=== PATIENT | female | born 1995 | race Caucasian/White ===

== ENCOUNTER 2024-09-25 23:24 | Emergency (ER) | payer OTHER, SELFPAY ==
--- NOTE | ~2024-09-25 | CT_ITS ---
EXAMINATION: CT ANGIOGRAM CHEST CLINICAL INFORMATION: Tachycardia. Chest pain. History of breast cancer. COMPARISON: Chest radiograph 09/25/2024 TECHNIQUE: Multiple axial images were obtained through the chest after the administration of 65 mL of Omnipaque 350 intravenous contrast. Extensive vascular post-processing including two-dimensional and three-dimensional reformatted images were created and reviewed on an independent workstation. This CT examination was performed using dose optimization techniques as appropriate, variously including the following: *Automated exposure control *Adjustment of mA and/or kV according to patient size (this includes techniques or standardized protocols for targeted exams where dose is matched to indication/reason for exam; i.e. extremities or head) *Use of iterative reconstruction technique DLP: 233 mGy-cm FINDINGS: Pulmonary arterial system: High density intraluminal opacification of the pulmonary arterial system is noted. No intraluminal filling defects are noted in the visualized pulmonary arterial system to suggest the presence of pulmonary bladder. The main and central pulmonary arteries are normal in caliber. Thoracic aorta: Normal in caliber. Normal in contour. Lungs and pleura: No endobronchial lesions identified. No pulmonary consolidation. No suspicious pulmonary ground glass opacities. No effusions or pneumothoraces. Mediastinum: Normal appearance of the thyroid which is only partially included on imaged field of view. No lymphadenopathy. Normal heart size. No pericardial thickening or fluid collections. Small hiatal hernia. Thoracic wall: Left axillary and right axillary lymph node dissection clips. Multiple prepectoral vascular clips noted. Status post bilateral mastectomy. No subpectoral lymphadenopathy is identified. No thoracic wall masses or inflammatory changes identified. Incidentally visualized abdominal structures: A 9 mm rounded low-density (2 Hounsfield units) focus is present in the superior aspect of the right lobe of the liver and is most consistent with a benign, simple cyst margin no additional imaging follow-up in the basis of this examination. Osseous structures: No suspicious skeletal lesions noted. A densely sclerotic 5 mm focus is present in the T6 vertebral body and has the appearance of a benign enostosis. CT/CT angio chest PE protocol IMPRESSION: *CT pulmonary angiogram negative for pulmonary emboli. *No pulmonary abnormalities identified. No evidence of pneumonia or active pulmonary edema. *Small hiatal hernia. *Status post bilateral mastectomy and bilateral axillary lymph node dissection. Electronically signed by: Gio Guy MD 09/26/2024 06:14 AM BETTIE OZUNA
--- NOTE | ~2024-09-25 | XR_ITS ---
EXAMINATION: XR CHEST CLINICAL INFORMATION: Pain on inspiration with recent pneumonia COMPARISON: None available. TECHNIQUE: 2 views of the chest were obtained. FINDINGS: Multiple clips are seen in both the chest wall and axillas. No significant abnormality is noted involving the heart, lungs, mediastinum, bony thorax or soft tissues. XR/XR chest 2V IMPRESSION: Unremarkable examination. Electronically signed by: Chi Sinclair MD 09/26/2024 12:28 AM BETTIE
[2024-09-25 23:40] VITALS: BP 98/63; PULSE 89; RESP 18; O2SAT 98; BMI 32.3
[2024-09-26 00:34] LABS: Influenza A PCR NEGATIVE (Negative); Influenza B PCR NEGATIVE (Negative); Resp Syncy Virus RNA Qual PCR NEGATIVE (Negative); SARS COV2 PCR INHOUSE NEGATIVE (Negative)
[2024-09-26 02:11] VITALS: BP 108/67; PULSE 79; RESP 16; TEMP 36.5; O2SAT 100
--- NOTE | 2024-09-26 03:05 | ED.GENADULT ---
HPI - General Adult General Chief complaint: Upper Respiratory Symptoms Stated complaint: ammonia Time Seen by Provider: 09/26/24 02:59 Source: patient Mode of arrival: ambulatory Limitations: no limitations History of Present Illness ED Provider: Dr. Harriet Bennett HPI narrative: Patient comes to the emergency room complaining of lower back pain with deep inhalation and certain movements. Patient states that about 2 weeks ago she was diagnosed with pneumonia, given antibiotics. Patient states that she has not been coughing, no fever chills, no shortness of breath. Patient states that she has a bit of pain in the back especially with deep breaths. Otherwise patient has no complaints, denies any palpitations, denies any lower extremity pain or swelling. Related Data Previous Rx's ?Medication ?Instructions ?Recorded cyclobenzaprine 10 mg tablet 10 mg PO TID PRN muscle spasm #10 09/26/24 tabs ibuprofen 600 mg tablet 600 mg PO Q8H PRN fever or pain 09/26/24 #20 tabs Allergies Allergy/AdvReac Type Severity Reaction Status Date / Time adhesive Allergy Rash Verified 09/25/24 23:41 gabapentin AdvReac Dizziness Verified 09/25/24 23:41 Review of Systems Review of Systems: Constitutional : No Weight loss, No Fever, No Chills, No Night Sweats, No Fatigue, No Malaise ENT/Mouth : No Hearing loss, No Ear Pain, No Nasal Congestion, No Sinus Pain, No Hoarseness, No sore throat, No Rhinorrhea, No Swallowing Difficulty Eyes: No Eye Pain, No Swelling, No Redness, No Foreign Body, No Discharge, No Vision Changes Cardiovascular : No Chest Pain, No SOB, No Dyspnea on Exertion, No Orthopnea, No Edema, No Palpitations Respiratory : No Cough, No Sputum, No Wheezing, No Smoke Exposure, No Dyspnea Gastrointestinal : No Nausea, No Vomiting, No Diarrhea, No Constipation, No abdominal Pain, No Hematochezia, No Melena Genitourinary : no irregular bleeding, No Dysuria, No Urinary Frequency, No Hematuria, No Urinary Incontinence, No Urgency, No Flank Pain, No Urinary Flow Changes, No Hesitancy Musculoskeletal : Complaining of mild back pain on the right middle back No joint pain, No Myalgias, No Joint Swelling Skin : No Skin Lesions, No rash Neuro : No Weakness, No Numbness, No Paresthesias, No Loss of Consciousness, No Dizziness, No Headache Psych : No Anxiety/Panic, No Depression, No SI/HI/AH/VH, No Social Issues, Heme/Lymph: No Bruising, No Bleeding,No Lymphadenopathy Endocrine : No Polyuria, No Polydipsia, No Temperature Intolerance [facility] Past Medical History Medical History (Updated 09/26/24 @ 06:41 by Harriet Bennett MD) Breast cancer Social History Social History Alcohol intake: never Smoked in Last 30 Days: No Use of substances other than those prescribed or required for medical reasons: No Advance Directives: No Advance Directives Information Provided: No Do you have a plan to hurt others: No Plan Patient : No Physical Exam ED Vital Signs: Vital Signs - 24 hr 09/25/24 23:40 09/26/24 02:11 09/26/24 04:04 Temperature 97.7 F 97.7 F Pulse Rate 89 79 76 Respiratory Rate 18 16 18 Blood Pressure 98/63 108/67 102/58 L Pulse Oximetry 98 100 98 Oxygen Delivery Method Room Air Room Air Room Air 09/26/24 05:57 Temperature Pulse Rate Respiratory Rate Blood Pressure Pulse Oximetry 95 Oxygen Delivery Method Room Air BMI result Body Mass Index 32.3 Const Other: Appearance: Alert. Oriented X3. No acute distress. Eyes: Pupils equal, round and reactive to light. ENT: Pharynx normal. Neck: Normal inspection. Neck supple. No lymph nodes noted. No crepitus CVS: Normal heart rate and rhythm. Pulses normal. Normal S1 and S2 Respiratory: No respiratory distress. Breath sounds normal. No Wheezing. No rales Abdomen: Soft and nontender. No rigidity. No distention. By: Reproducible pain to palpation in the middle back Skin: Skin warm and dry. Normal skin color. Normal skin turgor. Extremities: No lower extremity edema. No Lacerations. No Rash Neuro: Oriented X 3. No motor deficit. No sensory deficit. Moving all extremities. No slurred speech. CN 2 through 12 grossly intact Psych: calm, cooperative, normal affect Medications Administered Discontinued Medications Generic Name Dose Route Start Last Admin Trade Name Freq PRN Reason Stop Dose Admin Ibuprofen 800 mg 09/26/24 03:04 09/26/24 03:21 Ibuprofen 800 Mg Tablet PO 09/26/24 03:05 800 mg ONCE ONE Administration Iohexol 65 ml 09/26/24 05:58 09/26/24 05:58 Iohexol 350 Mg/Ml 100 Ml Infus..Btl IV 09/26/24 05:59 65 ml ONCE ONE Administration Medical Decision Making Medical Decision Making [facility] Narrative: Patient has not been having any URI symptoms. No shortness of breath, no tachycardia, normal vitals, all the patient has history of breast cancer in remission, a PE is not suspected at this time. -chest x-ray does not show any acute abnormalities. No infiltrates, as mentioned above no URI symptoms -labs negative for influenza COVID and RSV -patient's pain reproducible on palpation, source of pain likely musculoskeletal versus pleurisy However, patient states that she has noted today that when she gets up and walks, her heart rate ranges between 140 and 160. -patient's CT scan for pulmonary embolism is negative -after whole workup, patient states that she usually gets 3 L of normal saline per week, states that she usually runs low blood pressure and for POTS -patient receiving 2 L of normal saline, then we will re-evaluate heart rate. Patient likely to be discharged afterwards. -sign-out given to my colleague Dr. Dwyer - Differential Diagnosis Differential Diagnoses: The differential diagnosis associated with the presentation includes (As above) Lab Data [facility] Lab Attestation statement: I reviewed the patient's lab results. 09/26/24 04:14 09/26/24 04:14 Labs: Lab Results 09/25/24 09/26/24 Range/Units 23:50 04:14 WBC 6.6 (4.8-10.8) X10*3/uL RBC 3.87 L (4.20-5.50) X10*6/uL Hgb 12.8 (12.0-16.0) g/dl Hct 37.1 (37.0-47.0) % MCV 95.9 (80.0-98.0) fL MCH 33.1 H (27.0-33.0) pg MCHC 34.5 (31.0-35.0) g/dl RDW 12.6 (11.0-16.0) % Plt Count 187 (160-400) X10*3/uL MPV 8.6 L (9.4-12.3) fL Immature Gran % (Auto) 0.2 (0.0-0.4) % Neut % (Auto) 63.1 (45-73) % Lymph % (Auto) 28.7 (20-40) % [place] % (Auto) 7.3 (2-11) % Eos % (Auto) 0.5 (0-4) % Baso % (Auto) 0.2 (0-2) % Lymph # (Auto) 1.9 (1.2-4.9) X10*3/uL [place] # (Auto) 0.5 (0.1-1.2) X10*3/uL Eos # (Auto) 0.0 (0.0-0.4) X10*3/uL Baso # (Auto) 0.0 (0.0-0.2) X10*3/uL Abs Immat Gran (auto) 0.01 (0.00-0.03) X10*3/uL Absolute Neuts (auto) 4.2 (2.0-8.3) x10*3/uL Absolute Nucleated RBC 0.000 (0.0-0.012) X10*3/uL Nucleated RBC % (auto) 0.0 (0.0-0.2) /100WBC PT 12.7 H (10.9-12.4) SEC INR 1.1 (0.9-1.1) D-Dimer High Sensitivty < 150 NG/ML Sodium 140 (135-145) mmol/L Potassium 3.4 (3.3-5.1) mmol/L Chloride 107 (96-108) mmol/L Carbon Dioxide 21 L (22-29) mmol/L Anion Gap 15 (12-20) BUN 8 L (9-16) mg/dL Creatinine 0.66 (0.5-1.4) mg/dL Estim Creat Clear Calc 120.7 Estimated GFR > 60 Random Glucose 77 (60-115) mg/dL Calcium 9.6 (8.4-10.2) mg/dL Troponin I High Sens < 2.7 (<3.5-17.0) ng/L Beta HCG, Quant < 2 mIU/mL Influenza Type A (PCR) NEGATIVE (Negative) Influenza Type B (PCR) NEGATIVE (Negative) RSV RNA Qual (PCR) NEGATIVE (Negative) SARS-CoV-2 RNA (RT-PCR) NEGATIVE (Negative) Independent Interpretation I performed an independent interpretation of an: Plain X-Ray Radiology Impression Discussion of test interpretation with radiology: I have reviewed the radiologist's reading. Radiologist Impression: Multiple clips are seen in both the chest wall and axillas. No significant abnormality is noted involving the heart, lungs, mediastinum, bony thorax or soft tissues. XR/XR chest 2V IMPRESSION: Unremarkable examination. Discharge Plan Discharge Clinical Impression: Pleurisy, Postural orthostatic tachycardia syndrome [POTS] Patient Disposition: Home, Self-Care Instructions: Pleurisy (ED) Additional Instructions: Please follow-up with your primary care physician tomorrow. If you have any worsening or new symptoms, please return to the emergency room or call 911 Prescriptions: New ibuprofen 600 mg tablet 600 mg PO Q8H PRN (Reason: fever or pain) Qty: 20 0RF cyclobenzaprine 10 mg tablet 10 mg PO TID PRN (Reason: muscle spasm) Qty: 10 0RF Print Language: Kittitian
[2024-09-26] MEDS: Ibuprofen 800 MG TABLET PO (03:21)
--- NOTE | 2024-09-26 03:36 | ECG_ITS ---
Test Reason : UPPER RESP Blood Pressure : / mmHG Vent. Rate : 076 BPM Atrial Rate : 076 BPM P-R Int : 182 ms QRS Dur : 080 ms QT Int : 400 ms P-R-T Axes : 048 014 014 degrees QTc Int : 450 ms Normal sinus rhythm with sinus arrhythmia Normal ECG No previous ECGs available Referred By: Harriet Bennett Electronically Signed By:London Mckoy
[2024-09-26 04:04] VITALS: BP 102/58; PULSE 76; RESP 18; TEMP 36.5; O2SAT 98
--- NOTE | 2024-09-26 04:17 | MHC.EDTECH ---
Patient ekg taken and was read by Provider ,blood drawn and sent to lab .
[2024-09-26 04:19] LABS: MANUAL DIFF FLAG NO
[2024-09-26 04:26] LABS: Basophils Percent Auto 0.2 % (0-2); Eosinophils Percent Auto 0.5 % (0-4); Hematocrit 37.1 % (37.0-47.0); Hemoglobin 12.8 g/dl (12.0-16.0); Imm Gran Abs Auto 0.01 X10*3/uL (0.00-0.03); Imm Gran Pct Auto 0.2 % (0.0-0.4); Lymphocytes Absolute Auto 1.9 X10*3/uL (1.2-4.9); Lymphocytes Percent Auto 28.7 % (20-40); Mean Corpuscular HGB Conc 34.5 g/dl (31.0-35.0); Mean Corpuscular Hemoglobin 33.1 pg (27.0-33.0); Mean Corpuscular Volume 95.9 fL (80.0-98.0); Mean Platelet Volume 8.6 fL (9.4-12.3); Monocytes Absolute Auto 0.5 X10*3/uL (0.1-1.2); Monocytes Percent Auto 7.3 % (2-11); Neutrophils Absolute Auto 4.2 x10*3/uL (2.0-8.3); Neutrophils Percent Auto 63.1 % (45-73); Platelet Count 187 X10*3/uL (160-400); Red Blood Count 3.87 X10*6/uL (4.20-5.50); Red Cell Distribution Width 12.6 % (11.0-16.0); White Blood Count 6.6 X10*3/uL (4.8-10.8)
[2024-09-26 04:35] LABS: INTERNATIONAL NORM RATIO 1.1 (0.9-1.1); Prothrombin Time 12.7 SEC (10.9-12.4)
[2024-09-26 04:37] LABS: D Dimer High Sensitivity < 150 NG/ML
[2024-09-26 04:50] LABS: Anion Gap 15 (12-20); Blood Urea Nitrogen 8 mg/dL (9-16); Calcium 9.6 mg/dL (8.4-10.2); Carbon Dioxide 21 mmol/L (22-29); Chloride 107 mmol/L (96-108); Creatinine Clr Calc Pharmacy 120.7; Estimated Glomerular Filt Rate > 60; Glucose Random 77 mg/dL (60-115); Potassium 3.4 mmol/L (3.3-5.1); Sodium 140 mmol/L (135-145)
[2024-09-26 05:00] LABS: Troponin-I High Sensitivity < 2.7 ng/L (<3.5-17.0)
[2024-09-26 05:32] LABS: HCG Quantitative < 2 mIU/mL
[2024-09-26 05:57] VITALS: O2SAT 95
[2024-09-26] MEDS: iohexoL 350 MG/ML 100 ML INFUS..BTL 65 ML IV (05:58)
[2024-09-26] MEDS: 0.9 % Sodium Chloride 2,000 ML 999 ML IVCONT (06:41)
[2024-09-26 08:00] VITALS: BP 102/54; PULSE 85; RESP 17; O2SAT 99
[2024-09-26 08:25] VITALS: BP 102/54; PULSE 85; RESP 17; TEMP -17.7; TEMP 0; O2SAT 99
[2024-09-26 09:58] LABS: TSH reflex Free T4 1.72 uIU/mL (0.32-4.0)
== END 2024-09-26 08:26 | disposition home or self-care (01) ==
PROVIDERS: Emergency Medicine; Emergency Provider Emergency Medicine; PCP Internal Medicine
DX: G90.A Postural orthostatic tachycardia syndrome [POTS] (principal); R09.1 Pleurisy; M54.50 Low back pain, unspecified; I49.8 Other specified cardiac arrhythmias; Z03.818 Encounter for observation for suspected exposure to other biological agents ruled out; Z79.899 Other long term (current) drug therapy
CPT/HCPCS: 0241U; 36415; 71046; 71275; 80048; 84443; 84484; 84702; 85025; 85379; 85610; 93005; 96360; 99285; Q9967

== ENCOUNTER → 2024-09-26 03:36 | Outpatient (BNV) | payer OTHER, SELFPAY | PROVIDERS: Emergency Provider Emergency Medicine; PCP Internal Medicine; Visit Provider Internal Medicine Cardiovascular Disease | DX: R09.1 Pleurisy (principal); G90.A Postural orthostatic tachycardia syndrome [POTS] | CPT/HCPCS: 93010 ==

== ENCOUNTER 2025-01-21 01:51 | Emergency (ER) | payer OTHER, SELFPAY ==
--- NOTE | 2025-01-21 | ECG_ITS ---
Test Reason : left sided cp Blood Pressure : */* mmHG Vent. Rate : 76 BPM Atrial Rate : 76 BPM P-R Int : 168 ms QRS Dur : 80 ms QT Int : 396 ms P-R-T Axes : 44 31 34 degrees QTcB Int : 445 ms Normal sinus rhythm with sinus arrhythmia Normal ECG When compared with ECG of 26-Sep-2024 03:51, No significant change was found Referred By: Generic ED Physician Electronically Signed By: JERARDO DODSON
--- NOTE | ~2025-01-21 | CT_ITS ---
CLINICAL HISTORY: L CP, sob, hx L breast CA Exam: CT angiogram of the chest with intravenous contrast. Comparison: September 26, 2024. Findings: There is appropriate contrast opacification of the main, lobar, and segmental pulmonary arteries. No filling defects identified to suggest pulmonary embolism. Thoracic aorta is nonaneurysmal. No focal areas of consolidation are identified within the lungs. Patient has undergone prior bilateral mastectomy with bilateral axillary lymph node dissection. No enlarged lymph nodes. Small to moderate-sized hiatal hernia. Unchanged fluid attenuation structure within the right lobe of the liver measuring 10 mm in size. No free fluid or free air within the upper abdomen. No focal bony lesion. Impression: Negative CT angiogram of the chest. Specifically, no pulmonary emboli. This document has been electronically signed by: Darryl Villafuerte MD on 01/21/2025 06:13:37
--- NOTE | ~2025-01-21 | XR_ITS ---
CLINICAL HISTORY: cp, cough 2 view chest x-ray. Comparison: CT/SR - CT ANGIO CHEST PE PROTOCOL - 09/26/24 05:49 EST CR/SR - XR CHEST 2V - 09/25/24 23:58 EST Findings: No consolidation, pneumothorax, or effusion. Heart size normal. Surgical clips are identified over the chest wall bilaterally. Impression: 1. No acute cardiopulmonary process. No focal pulmonary consolidation. This document has been electronically signed by: Salvador Hall MD on 01/21/2025 02:48:11
[2025-01-21 02:00] VITALS: BP 107/63; PULSE 83; RESP 18; TEMP 36.7; O2SAT 100; BMI 30.2
--- NOTE | 2025-01-21 02:00 | MHC.EDTECH ---
Patient brought into triage area,EKG taken per order and signed by provider
[2025-01-21 02:26] LABS: Basophils Percent Auto 0.1 % (0-2); Eosinophils Percent Auto 0.6 % (0-4); Hematocrit 34.8 % (37.0-47.0); Hemoglobin 12.3 g/dl (12.0-16.0); Imm Gran Abs Auto 0.01 X10*3/uL (0.00-0.03); Imm Gran Pct Auto 0.1 % (0.0-0.4); Lymphocytes Absolute Auto 1.7 X10*3/uL (1.2-4.9); Lymphocytes Percent Auto 25.4 % (20-40); MANUAL DIFF FLAG NO; Mean Corpuscular HGB Conc 35.3 g/dl (31.0-35.0); Mean Corpuscular Hemoglobin 33.7 pg (27.0-33.0); Mean Corpuscular Volume 95.3 fL (80.0-98.0); Mean Platelet Volume 8.7 fL (9.4-12.3); Monocytes Absolute Auto 0.5 X10*3/uL (0.1-1.2); Monocytes Percent Auto 7.2 % (2-11); Neutrophils Absolute Auto 4.6 x10*3/uL (2.0-8.3); Neutrophils Percent Auto 66.6 % (45-73); Platelet Count 176 X10*3/uL (160-400); Red Blood Count 3.65 X10*6/uL (4.20-5.50); Red Cell Distribution Width 12.5 % (11.0-16.0); White Blood Count 6.9 X10*3/uL (4.8-10.8)
[2025-01-21 02:45] LABS: Alanine Aminotransferase 11 U/L (0-31); Albumin Level 3.9 g/dL (3.5-5.0); Alkaline Phosphatase 71 U/L (39-117); Anion Gap 13 (12-20); Aspartate Amino Transferase 19 U/L (5-31); Bilirubin Total 0.3 mg/dL (0.0-1.0); Blood Urea Nitrogen 11 mg/dL (9-16); Carbon Dioxide 24 mmol/L (22-29); Chloride 107 mmol/L (96-108); Creatinine Clr Calc Pharmacy 120.3; Estimated Glomerular Filt Rate > 60; Glucose Random 90 mg/dL (60-115); Potassium 3.7 mmol/L (3.3-5.1); Sodium 140 mmol/L (135-145); Total Protein 6.9 g/dL (6.5-8.0)
[2025-01-21 02:49] LABS: Troponin-I High Sensitivity < 2.7 ng/L (<3.5-17.0)
[2025-01-21 03:10] VITALS: PULSE 84
--- NOTE | 2025-01-21 03:18 | PC.NURSE ---
Patient is alert and oriented x4, no signs of distress. Patient reports 7/0 left sided chest pain with radiation to back since Friday. Patient also endorses slight swelling distal old mastectomy incision with tenderness on palpation. Patient awaiting to be seen by ED provider, warm blanket offered and given to patient, call stevens placed within patient's reach. Plan of care ongoing.
--- NOTE | 2025-01-21 03:48 | ED_ITS ---
HPI - Chest Pain General Chief Complaint: Chest Pain Stated Complaint: left sided cp Time Seen by Provider: 01/21/25 03:41 Source: patient Mode of arrival: ambulatory Limitations: no limitations History of Present Illness ED Provider: Dr. Harriet Bennett HPI narrative: Patient comes to emergency room complaining of left-sided chest pain and swelling. Patient has history of double mastectomy done a proximally 2 years ago. Patient states that the pain is in the same spot where she had her Breast tumor removed. Patient also complaining of mild shortness of breath. Denies any syncope or near syncopal episodes. Related Data Previous Rx's ?Medication ?Instructions ?Recorded cyclobenzaprine 10 mg tablet 10 mg PO TID PRN muscle spasm #10 09/26/24 tabs ibuprofen 600 mg tablet 600 mg PO Q8H PRN fever or pain 09/26/24 #20 tabs Allergies Allergy/AdvReac Type Severity Reaction Status Date / Time adhesive Allergy Rash Verified 01/21/25 02:03 gabapentin AdvReac Dizziness Verified 01/21/25 02:03 Review of Systems 2 Review of Systems: Constitutional : No Weight loss, No Fever, No Chills, No Night Sweats, No Fatigue, No Malaise ENT/Mouth : No Hearing loss, No Ear Pain, No Nasal Congestion, No Sinus Pain, No Hoarseness, No sore throat, No Rhinorrhea, No Swallowing Difficulty Eyes: No Eye Pain, No Swelling, No Redness, No Foreign Body, No Discharge, No Vision Changes Cardiovascular : complaining of pinpoint chest pain on the left side of the chest, complaining of mild shortness of breath Respiratory : No Cough, No Sputum, No Wheezing, No Smoke Exposure, No Dyspnea Gastrointestinal : No Nausea, No Vomiting, No Diarrhea, No Constipation, No abdominal Pain, No Hematochezia, No Melena Genitourinary : no irregular bleeding, No Dysuria, No Urinary Frequency, No Hematuria, No Urinary Incontinence, No Urgency, No Flank Pain, No Urinary Flow Changes, No Hesitancy Musculoskeletal : No joint pain, No Myalgias, No Joint Swelling Skin : No Skin Lesions, No rash Neuro : No Weakness, No Numbness, No Paresthesias, No Loss of Consciousness, No Dizziness, No Headache Psych : No Anxiety/Panic, No Depression, No SI/HI/AH/VH, No Social Issues, Heme/Lymph: No Bruising, No Bleeding,No Lymphadenopathy Endocrine : No Polyuria, No Polydipsia, No Temperature Intolerance [facility] Past Medical History Medical History (Updated 01/21/25 @ 06:23 by Harriet Bennett MD) Postural orthostatic tachycardia syndrome [POTS] Breast cancer Social History Social History Alcohol intake: never Smoked in Last 30 Days: No Use of substances other than those prescribed or required for medical reasons: No Advance Directives: No Advance Directives Information Provided: Yes Do you have a plan to hurt others: No Plan Patient : No Physical Exam 2 Vital Signs: Vital Signs: Last Vital Signs Temp 97.7 F 01/21/25 06:00 Pulse 76 01/21/25 06:00 Resp 17 01/21/25 06:00 BP 97/51 L 01/21/25 06:00 Pulse Ox 100 01/21/25 06:00 O2 Del Method Room Air 01/21/25 06:00 BMI result Body Mass Index 30.2 Const: Other: Appearance: Alert. Oriented X3. No acute distress. Eyes: Pupils equal, round and reactive to light. ENT: Pharynx normal. Neck: Normal inspection. Neck supple. No lymph nodes noted. No crepitus CVS: Normal heart rate and rhythm. Pulses normal. Normal S1 and S2 musculoskeletal. Pain to palpation on the left side of the chest. Since a bit more swollen than the right side. No signs of cellulitis. Respiratory: No respiratory distress. Breath sounds normal. No Wheezing. No rales Abdomen: Soft and nontender. No rigidity. No distention. Skin: Skin warm and dry. Normal skin color. Normal skin turgor. Extremities: No lower extremity edema. No Lacerations. No Rash Neuro: Oriented X 3. No motor deficit. No sensory deficit. Moving all extremities. No slurred speech. CN 2 through 12 grossly intact Psych: calm, cooperative, normal affect Course Course Course Narrative: Given patient's past medical history and current symptoms, we will go ahead and order a PE CT scan protocol Medications Administered Discontinued Medications Generic Name Dose Route Start Last Admin Trade Name Freq PRN Reason Stop Dose Admin Sodium Chloride 1,000 mls @ 999 mls/hr 01/21/25 03:47 01/21/25 05:37 Ns IVCONT 01/21/25 04:47 999 mls/hr .Q1H1M ONE Administration Iohexol 65 ml 01/21/25 05:27 01/21/25 05:27 Iohexol 350 Mg/Ml 100 Ml Infus..Btl IV 01/21/25 05:28 65 ml ONCE ONE Administration Medical Decision Making Medical Decision Making [facility] Narrative: my interpretation of labs: Normal hematology, normal chemistry, normal troponin chest x-ray does not show any acute abnormality CT PE : near for pulmonary embolism, no obvious abnormality. Differential Diagnosis Differential Diagnoses: The differential diagnosis associated with the presentation includes ( PE, musculoskeletal pain, pleurisy, costochondritis) Admission/Observation Consideration of admission/observation: Escalation of care including admission/observation considered ( Given patient's past medical history and presentation, observation was considered) Lab Data 01/21/25 02:22 01/21/25 02:22 Labs: Lab Results 01/21/25 Range/Units 02:22 WBC 6.9 (4.8-10.8) X10*3/uL RBC 3.65 L (4.20-5.50) X10*6/uL Hgb 12.3 (12.0-16.0) g/dl Hct 34.8 L (37.0-47.0) % MCV 95.3 (80.0-98.0) fL MCH 33.7 H (27.0-33.0) pg MCHC 35.3 H (31.0-35.0) g/dl RDW 12.5 (11.0-16.0) % Plt Count 176 (160-400) X10*3/uL MPV 8.7 L (9.4-12.3) fL Immature Gran % (Auto) 0.1 (0.0-0.4) % Neut % (Auto) 66.6 (45-73) % Lymph % (Auto) 25.4 (20-40) % [place] % (Auto) 7.2 (2-11) % Eos % (Auto) 0.6 (0-4) % Baso % (Auto) 0.1 (0-2) % Lymph # (Auto) 1.7 (1.2-4.9) X10*3/uL [place] # (Auto) 0.5 (0.1-1.2) X10*3/uL Eos # (Auto) 0.0 (0.0-0.4) X10*3/uL Baso # (Auto) 0.0 (0.0-0.2) X10*3/uL Abs Immat Gran (auto) 0.01 (0.00-0.03) X10*3/uL Absolute Neuts (auto) 4.6 (2.0-8.3) x10*3/uL Absolute Nucleated RBC 0.000 (0.0-0.012) X10*3/uL Nucleated RBC % (auto) 0.0 (0.0-0.2) /100WBC Sodium 140 (135-145) mmol/L Potassium 3.7 (3.3-5.1) mmol/L Chloride 107 (96-108) mmol/L Carbon Dioxide 24 (22-29) mmol/L Anion Gap 13 (12-20) BUN 11 (9-16) mg/dL Creatinine 0.64 (0.5-1.4) mg/dL Estim Creat Clear Calc 120.3 Estimated GFR > 60 Random Glucose 90 (60-115) mg/dL Calcium 9.0 D (8.4-10.2) mg/dL Total Bilirubin 0.3 (0.0-1.0) mg/dL AST 19 (5-31) U/L ALT 11 (0-31) U/L Alkaline Phosphatase 71 (39-117) U/L Troponin I High Sens < 2.7 (<3.5-17.0) ng/L Total Protein 6.9 (6.5-8.0) g/dL Albumin 3.9 (3.5-5.0) g/dL Beta HCG, Quant < 2 mIU/mL Independent Interpretation I performed an independent interpretation of an: CT Scan Radiology Impression Discussion of test interpretation with radiology: I have reviewed the radiologist's reading. Radiologist Impression: The lung bases are clear. There is prominent circumferential thickening of the lower esophagus. Ill-defined low-density focus within the posterior right hepatic lobe, stable. Probable hemangioma, axial 17. Additional low-density focus within the anterior right lobe on axial 12 this is also too small to confidently characterize. The gallbladder, spleen, adrenal glands and pancreas are unremarkable. No bowel obstruction or free air. Mild engorgement of the vasa recta. No free fluid, abscess or adenopathy. Kidneys demonstrate multiple variable-sized cysts. No obstructive uropathy. Bladder is partially distended without focal abnormality. IVC filter noted. No acute osseous finding. Impression: Prominent circumferential thickening of the lower esophagus, similar to prior. Mild engorgement of the vasa recta, nonspecific but can be seen with enteritis. No free air, free fluid, abscess or adenopathy. Critical Care Time Critical Care Time Critical Care Time: Yes Total Critical Care Time: 45 Attestation: I have personally provided critical care time. Time includes review of lab data, radiology results, discussion with consultants, and monitoring for potential decompensation. Intervention performed as documented. Discharge Plan Discharge Clinical Impression: Localized swelling of chest wall, Dyspnea Patient Disposition: Home, Self-Care Instructions: Dyspnea (ED), Chest Wall Pain (ED) Additional Instructions: Please follow-up with your primary care physician tomorrow. If you have any worsening or new symptoms, please return to the emergency room or call 911 Prescriptions: No Action ibuprofen 600 mg tablet 600 mg PO Q8H PRN (Reason: fever or pain) Qty: 20 0RF cyclobenzaprine 10 mg tablet 10 mg PO TID PRN (Reason: muscle spasm) Qty: 10 0RF Print Language: [place]
--- NOTE | 2025-01-21 04:41 | PC.NURSE ---
20 g IV line inserted to L AC for IV fluids and CTA PE. Patient requesting infusion of 1 L NS to be started after CTA.
[2025-01-21 04:59] LABS: HCG Quantitative < 2 mIU/mL
[2025-01-21] MEDS: iohexoL 350 MG/ML 100 ML INFUS..BTL 65 ML IV (05:27)
[2025-01-21] MEDS: 0.9 % Sodium Chloride 1,000 ML 999 ML IVCONT (05:37)
[2025-01-21 06:00] VITALS: BP 97/51; PULSE 76; RESP 17; TEMP 36.5; O2SAT 100
[2025-01-21 06:33] VITALS: BP 107/48; PULSE 84; RESP 16; TEMP 36.7; O2SAT 98
== END 2025-01-21 06:56 | disposition home or self-care (01) ==
PROVIDERS: Emergency Provider Emergency Medicine; PCP Registered Nurse
DX: R07.89 Other chest pain (principal); R06.02 Shortness of breath; R22.2 Localized swelling, mass and lump, trunk; I49.8 Other specified cardiac arrhythmias; R05.9 Cough, unspecified
CPT/HCPCS: 36415; 71046; 71275; 80053; 84484; 84702; 85025; 93005; 96360; 99284; 99285; Q9967

== ENCOUNTER → 2025-01-21 01:56 | Outpatient (BNV) | payer OTHER, SELFPAY | PROVIDERS: Emergency Provider Emergency Medicine; PCP Registered Nurse; Visit Provider Internal Medicine | DX: R07.89 Other chest pain (principal) | CPT/HCPCS: 93010 ==

== ENCOUNTER → 2025-01-21 02:35 | Outpatient (BNV) | payer OTHER, SELFPAY | PROVIDERS: PCP Registered Nurse; Visit Provider Radiology Diagnostic Radiology | DX: R07.9 Chest pain, unspecified (principal); R06.02 Shortness of breath; R05.9 Cough, unspecified | CPT/HCPCS: 71046; 71275 ==